=== PATIENT | female | born 1970 | race Caucasian/White ===

== ENCOUNTER 2020-06-05 14:02 | Emergency (ER) | payer BC ==
[~2020-06-05] VITALS: Ht 167.6 cm; Wt 86.2 kg
== END 2020-06-05 15:58 | disposition home or self-care (01) ==
LOC: FSED 14:10
DX: S52.122A Displaced fracture of head of left radius, initial encounter for closed fracture (principal); W00.0XXA Fall on same level due to ice and snow, initial encounter; Y93.01 Activity, walking, marching and hiking; Y92.008 Other place in unspecified non-institutional (private) residence as the place of occurrence of the external cause
CPT/HCPCS: 99283